=== PATIENT | male | born 1980 | race Caucasian/White ===

== ENCOUNTER 2016-12-26 06:19 | Emergency (ER) | payer SELFPAY ==
[2016-12-26 05:41] LABS: BASOPHIL 0.1 % (0-2); EOSINOPHIL 2.1 % (0-5); HCT 42.5 % (42.0-52.0); HGB 14.8 g/dl (13.2-18.0); LYMPHOCYTE 44.3 % (15-48); MCH 29.7 pg (25.0-31.0); MCHC 34.8 g/dL (32.0-36.0); MCV 85.3 fL (78.0-100.0); MONOCYTE 11.4 % (0-12); MPV 9.4 fL (6.0-9.5); NEUTROPHIL 42.1 % (41-80); PLT 166 K/uL (150-400); RBC 4.98 M/uL (4.70-6.00); RDW 13.7 % (11.5-14.0); WBC 7.6 K/uL (4.0-10.5)
[2016-12-26 05:51] LABS: INR 0.99 (0.9-1.2); PROTHROMBIN TIME 12.7 SECONDS (11.7-14.0); PTT 26.6 SECONDS (23.2-31.4)
[2016-12-26 05:59] LABS: TROPONIN T < 0.010 ng/mL
[2016-12-26 06:01] LABS: ALBUMIN 4.3 g/dL (3.5-5.0); CREATININE 0.5 mg/dL (0.7-1.2); GLOBULIN (CALCULATION) 2.9 g/dL (2.2-4.2); POTASSIUM 3.5 mmol/L (3.5-5.1); TOTAL PROTEIN 7.2 g/dL (6.4-8.3)
[2016-12-26 06:02] LABS: CKMB 38.07 ng/mL (0.97-4.94)
[2016-12-26 06:51] LABS: BILIRUBIN NEGATIVE (NEGATIVE); BLOOD NEGATIVE Ery/uL (NEGATIVE); CLARITY CLEAR (CLEAR); COLOR YELLOW (YELLOW); GLUCOSE (U) NORMAL (NORMAL); KETONE (U) NEGATIVE (NEGATIVE); LEUKOCYTES NEGATIVE Leu/uL (NEGATIVE); NITRITE NEGATIVE (NEGATIVE); PROTEIN NEGATIVE (NEGATIVE); SPECIFIC GRAVITY <=1.005 (1.001-1.030); UROBILINOGEN 0.2 mg/dL (0.2-1.0)
[2016-12-26 07:16] LABS: AMPHETAMINES NEGATIVE (NEGATIVE); BARBITURATES NEGATIVE (NEGATIVE); BENZODIAZEPINES NEGATIVE (NEGATIVE); COCAINE NEGATIVE (NEGATIVE); MARIJUANA (THC) NEGATIVE (NEGATIVE); METHADONE NEGATIVE (NEGATIVE); TRICYCLIC ANTIDEPRESSANT NEGATIVE (NEGATIVE)
[2016-12-26 10:45] LABS: TROPONIN T < 0.010 ng/mL
[2016-12-26 10:49] LABS: CKMB 28.91 ng/mL (0.97-4.94)
== END 2016-12-26 11:17 | disposition home or self-care (01) ==
LOC: FER 06:19
PROVIDERS: Emergency Medicine
DX: R07.9 Chest pain, unspecified (principal); F10.10 Alcohol abuse, uncomplicated; F17.210 Nicotine dependence, cigarettes, uncomplicated; Z90.49 Acquired absence of other specified parts of digestive tract
CPT/HCPCS: 36415; 71020; 80053; 80305; 81003; 82550; 82553; 83690; 84484; 85025; 85610; 85730; 93005; G0480

== ENCOUNTER 2021-01-18 03:51 | Emergency (ER) | payer OTHER ==
[2021-01-18] MEDS ORDERED: PEPCID AC20 MG PO (06:52)
== END 2021-01-18 07:14 | disposition home or self-care (01) ==
LOC: FER 03:51
DX: R51.9 Headache, unspecified (principal); G47.00 Insomnia, unspecified; K21.9 Gastro-esophageal reflux disease without esophagitis; I10 Essential (primary) hypertension; F17.200 Nicotine dependence, unspecified, uncomplicated; Z79.899 Other long term (current) drug therapy
CPT/HCPCS: 99283; J1885